=== PATIENT | female | born 1960 | race Caucasian/White ===

== ENCOUNTER → 2016-11-02 | Outpatient (CLI) | payer OTHER ==
--- NOTE | 2016-11-02 12:44 | REPMRS ---
Patient History The patient states she had a clinical breast exam in 11/2016. Patient is postmenopausal. Family history of pancreatic cancer in paternal grandmother at age 75. Digital Woman Screen Mammo: November 02, 2016 - Exam #: [id number] Bilateral CC and MLO view(s) were taken. Technologist: Melvina Lopez, Technologist Prior study comparison: January 12, 2015, digital woman screen mammo performed at [facility] to [facility]. January 12, 2013, digital woman screen mammo performed at [facility]. October 04, 2011, digital woman screen mammo performed at [facility]. FINDINGS: There are scattered fibroglandular densities. There has been no change in the appearance of the mammogram from the prior studies. There is a mild amount of scattered fibroglandular density which is fairly symmetric. There is no interval development of dominant mass, architectural distortion, or clustered microcalcification suggestive of malignancy. ASSESSMENT: BI-RADS/ACR category 1 mammogram. Negative. Recommendation Routine screening mammogram in 1 year (for women over age 40). This mammogram was interpreted with the aid of an FDA-approved computer-aided dectection system. Electronically Signed By: Giuseppe Kohli MD 11/02/16 4795
== END ==
LOC: M WHC 10:44
PROVIDERS: ATTEND Nurse Practitioner Family
DX: Z12.31 Encounter for screening mammogram for malignant neoplasm of breast (principal); Z78.0 Asymptomatic menopausal state; Z80.7 Family history of other malignant neoplasms of lymphoid, hematopoietic and related tissues

== ENCOUNTER → 2016-11-02 | Outpatient (REF) | payer OTHER | LOC: M SFHCWAGY 11:30 | PROVIDERS: ATTEND Nurse Practitioner Family | DX: Z11.3 Encounter for screening for infections with a predominantly sexual mode of transmission (principal); Z12.4 Encounter for screening for malignant neoplasm of cervix; N95.2 Postmenopausal atrophic vaginitis | CPT/HCPCS: 87491; 87591; G0123 ==

== ENCOUNTER → 2017-04-23 | Outpatient (CLI) | payer OTHER | LOC: M CLY 15:01 | DX: J10.1 Influenza due to other identified influenza virus with other respiratory manifestations (principal) | CPT/HCPCS: 71046 ==

== ENCOUNTER → 2020-02-19 | Outpatient (REF) | payer OTHER | LOC: M SFHCWAGY 13:01 | PROVIDERS: ATTEND Nurse Practitioner Family | DX: Z12.4 Encounter for screening for malignant neoplasm of cervix (principal) ==

== ENCOUNTER → 2020-02-19 | Outpatient (CLI) | payer OTHER ==
--- NOTE | 2020-02-19 09:28 | REPMRS ---
Patient History The patient states she had a clinical breast exam in 2019. Family history of pancreatic cancer at age 75 in paternal grandmother. Digital Woman Screen Mammo: February 19, 2020 - Exam #: [id number] Bilateral CC and MLO view(s) were taken. Technologist: Zee Balbuena, Technologist Prior study comparison: November 02, 2016, digital woman screen mammo performed at [facility]. January 12, 2015, digital woman screen mammo performed at [facility]. January 12, 2013, digital woman screen mammo performed at [facility]. FINDINGS: There are scattered fibroglandular densities. The Volpara volumetric breast density category is:B. There has been no change in the appearance of the mammogram from the prior studies. There is a mild amount of scattered fibroglandular density which is fairly symmetric. There is no interval development of dominant mass, architectural distortion, or grouped microcalcification suggestive of malignancy. 3-D tomosynthesis shows no additional findings. Assessment: BI-RADS/ACR category 1 mammogram. Negative Mammogram. Recommendation Routine screening mammogram of both breasts in 1 year (for women over age 40). This patient's [facility] Lifetime Breast Cancer Risk is estimated at 8.6 %. This mammogram was interpreted with the aid of an FDA-approved computer-aided dectection system. Electronically Signed By: Giuseppe Kohli MD 02/19/20 0928
== END ==
LOC: M WHC 08:17
PROVIDERS: ATTEND Nurse Practitioner Family
DX: Z12.31 Encounter for screening mammogram for malignant neoplasm of breast (principal); Z12.4 Encounter for screening for malignant neoplasm of cervix

== ENCOUNTER → 2020-05-26 | Outpatient (CLI) | payer OTHER ==
--- NOTE | 2020-05-26 16:05 | REP ---
INDICATION: CONTUSION RIGHT POSTERIOR RIB - 2 YRS AGO. COMPARISON: Bilateral rib series dated 11/01/2015. TECHNIQUE: Right ribs four views. PA chest single-view FINDINGS: Right ribs four views: No rib fracture or other rib abnormality is identified. PA chest: There is no pneumothorax, hemothorax, pulmonary contusion or pleural thickening. The lung bryant are clear. The cardiac size is normal. The jaciel, mediastinum, and skeletal structures are unremarkable except for scoliosis at the thoracolumbar junction convex right, unchanged.. IMPRESSION: Scoliosis convex right at the thoracolumbar junction, unchanged. Otherwise, negative right rib series. Because of the chronic skeletal pain consideration might be given to a radionuclide bone scan. <Electronically signed by Erik Sapp > 05/26/20 0983
== END ==
LOC: M CLY 14:12
PROVIDERS: ATTEND Nurse Practitioner Family
DX: S20.211A Contusion of right front wall of thorax, initial encounter (principal); X58.XXXA Exposure to other specified factors, initial encounter; Y92.9 Unspecified place or not applicable; M41.25 Other idiopathic scoliosis, thoracolumbar region

== ENCOUNTER → 2020-05-26 | Outpatient (REF) | payer OTHER ==
[2020-05-26 11:25] LABS: APPEARANCE, URINE TURBID (CLEAR); BACTERIA, URINE AUTO 3+ (NEGATIVE); BILIRUBIN, URINE AUTO NEGATIVE (NEGATIVE); BLOOD, URINE BLOOD NEGATIVE (NEGATIVE); COLOR, URINE YELLOW (YELLOW); GLUCOSE, URINE (UA) AUTO NEGATIVE (NEGATIVE); KETONE, URINE AUTO NEGATIVE (NEGATIVE); LEUKOCYTE ESTERASE, URINE AUTO 3+ (NEGATIVE); MUCUS, URINE LARGE (NEGATIVE); NITRITE, URINE AUTO NEGATIVE (NEGATIVE); PROTEIN, URINE AUTO 1+ mg/dL (NEGATIVE); RBC, URINE AUTO 1 /HPF (0-3); SQUAMOUS EPITHELIAL CELL UR AU 10 /HPF (0-6); WBC, URINE AUTO 26 /HPF (0-3)
[2020-05-26 11:26] LABS: BASO % 0.4 % (0.0-1.0); EOS # 0.2 10^3/uL (0.0-0.5); EOS % 2.9 % (0.0-3.0); HEMATOCRIT 42.6 % (36.0-47.0); HEMOGLOBIN 13.8 g/dl (12.0-15.5); LYMPH # 2.3 10^3/uL (1.5-5.0); LYMPH % 44.3 % (24.0-44.0); MEAN CORPUSCULAR HEMOGLOBIN 34.6 pg (27.0-33.0); MEAN CORPUSCULAR HGB CONC 32.4 g/dl (32.0-36.5); MEAN CORPUSCULAR VOLUME 106.8 fl (80.0-96.0); MONO # 0.5 10^3/uL (0.0-0.8); MONO % 8.8 % (2.0-8.0); NEUTROPHILS # 2.2 10^3/uL (1.5-8.5); NEUTROPHILS % 43.4 % (36.0-66.0); PLATELET COUNT, AUTOMATED 366 10^3/uL (150-450); RED BLOOD COUNT 3.99 10^6/uL (4.00-5.40); WHITE BLOOD COUNT 5.1 10^3/uL (4.0-10.0)
[2020-05-26 12:07] LABS: ERYTHROCYTE SEDIMENTATION RATE 7 mm/hr (0-30)
[2020-05-26 12:26] LABS: ALBUMIN 4.3 GM/DL (3.2-5.2); ALT/SGPT 51 U/L (12-78); BILIRUBIN,TOTAL 0.4 MG/DL (0.2-1.0); BLOOD UREA NITROGEN 13 MG/DL (7-18); CARBON DIOXIDE LEVEL 31 MEQ/L (21-32); CHLORIDE LEVEL 108 MEQ/L (98-107); CHOLESTEROL LEVEL 277 MG/DL (<200); CHOLESTEROL RISK RATIO 3.297 (<5); CREATININE FOR GFR 0.69 MG/DL (0.55-1.30); FERRITIN 86 NG/ML (8-252); FOLATE > 24.0 NG/ML; GLOMERULAR FILTRATION RATE > 60.0 (>51); GLUCOSE, FASTING 89 MG/DL (70-100); HDL CHOLESTEROL 84 MG/DL (>40); IRON (FE) 141 UG/DL (50-170); LDL CHOLESTEROL 161 MG/DL (<100); NON-HDL-C 193 MG/DL; POTASSIUM SERUM 4.3 MEQ/L (3.5-5.1); SODIUM LEVEL 143 MEQ/L (136-145); TOTAL 25(OH) VITAMIN D 37.9 NG/ML (30.0-100.0); TOTAL PROTEIN 7.8 GM/DL (6.4-8.2); TRIGLYCERIDES LEVEL 158 MG/DL (<150); VITAMIN B12 LEVEL 638 PG/ML
[2020-05-28 01:07] LABS: ANA (HEP2) Negative (.); CYCLIC CITRULLINATED PEPTIDE 7 units (0-19); Lyme Disease IgG/IgM Antibodie <0.91 ISR (0.00-0.90); Lyme Disease IgM Ab Quantitati <0.80 index (0.00-0.79)
== END ==
LOC: M SFHCCLAY 07:11
PROVIDERS: ATTEND Physician Assistant
DX: M25.50 Pain in unspecified joint (principal); E78.5 Hyperlipidemia, unspecified

== ENCOUNTER → 2020-06-08 | Outpatient (CLI) | payer OTHER ==
--- NOTE | 2020-06-08 11:13 | REP ---
INDICATION: PAIN. COMPARISON: None. 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 Generalized mild age-related degenerative changes to the remainder of the interphalangeal joints is appreciated including subtle subchondral sclerosis and minimal joint space narrowing. Left hand demonstrates mild/early moderate generalized degenerative changes with subchondral sclerosis and joint space narrowing primarily involving the interphalangeal joints as well as subtle cortical irregularity and joint space narrowing at the 1st carpometacarpal joint. IMPRESSION: Degenerative changes as described above primarily noted at the right 3rd PIP joint. <Electronically signed by Sourav Espino > 06/08/20 [id number]
== END ==
LOC: M SOG 09:31
PROVIDERS: ATTEND Family Medicine
DX: M13.841 Other specified arthritis, right hand (principal); M25.542 Pain in joints of left hand

== ENCOUNTER → 2020-11-24 | Outpatient (REF) | payer OTHER ==
[2020-11-24 13:00] LABS: CHOLESTEROL RISK RATIO 3.571 (<5)
== END ==
LOC: M SFHCCLAY 07:16
PROVIDERS: ATTEND Nurse Practitioner Family
DX: E78.5 Hyperlipidemia, unspecified (principal)

== ENCOUNTER → 2021-08-02 | Outpatient (REF) | payer OTHER ==
[2021-08-02 15:57] LABS: BASO % 0.5 % (0.0-1.0); EOS # 0.1 10^3/uL (0.0-0.5); EOS % 1.5 % (0.0-3.0); HEMATOCRIT 36.2 % (36.0-47.0); HEMOGLOBIN 11.9 g/dl (12.0-15.5); LYMPH # 2.7 10^3/uL (1.5-5.0); LYMPH % 45.9 % (24.0-44.0); MEAN CORPUSCULAR HEMOGLOBIN 34.3 pg (27.0-33.0); MEAN CORPUSCULAR HGB CONC 32.9 g/dl (32.0-36.5); MEAN CORPUSCULAR VOLUME 104.3 fl (80.0-96.0); MONO # 0.5 10^3/uL (0.0-0.8); MONO % 8.4 % (2.0-8.0); NEUTROPHILS # 2.6 10^3/uL (1.5-8.5); NEUTROPHILS % 43.5 % (36.0-66.0); PLATELET COUNT, AUTOMATED 318 10^3/uL (150-450); RED BLOOD COUNT 3.47 10^6/uL (4.00-5.40); WHITE BLOOD COUNT 5.9 10^3/uL (4.0-10.0)
[2021-08-02 16:39] LABS: ALBUMIN 3.8 GM/DL (3.2-5.2); ALT/SGPT 26 U/L (12-78); BILIRUBIN,TOTAL 0.5 MG/DL (0.2-1.0); BLOOD UREA NITROGEN 15 MG/DL (7-18); CALCIUM LEVEL 8.7 MG/DL (8.8-10.2); CARBON DIOXIDE LEVEL 30 MEQ/L (21-32); CHLORIDE LEVEL 105 MEQ/L (98-107); CHOLESTEROL LEVEL 201 MG/DL (<200); CREATININE FOR GFR 0.73 MG/DL (0.55-1.30); FREE T4 1.05 NG/DL (0.76-1.46); GLOMERULAR FILTRATION RATE > 60.0 (>45); GLUCOSE, FASTING 83 MG/DL (70-100); HDL CHOLESTEROL 87 MG/DL (>40); IRON (FE) 139 UG/DL (50-170); LDL CHOLESTEROL 100 MG/DL (<100); NON-HDL-C 114 MG/DL; PERCENT SATURATION 45.1 % (13.2-45.0); POTASSIUM SERUM 4.1 MEQ/L (3.5-5.1); SODIUM LEVEL 138 MEQ/L (136-145); TOTAL IRON BINDING CAPACITY 308 UG/DL (250-450); TOTAL PROTEIN 7.1 GM/DL (6.4-8.2); TRIGLYCERIDES LEVEL 71 MG/DL (<150)
== END ==
LOC: M SFHCCLAY 11:13
PROVIDERS: ATTEND Nurse Practitioner Family
DX: E78.5 Hyperlipidemia, unspecified (principal); D64.9 Anemia, unspecified; Z13.1 Encounter for screening for diabetes mellitus

== ENCOUNTER → 2021-10-03 | Outpatient (REF) | payer OTHER | LOC: M WUC 21:20 | PROVIDERS: ATTEND Student in an Organized Health Care Education/Training Program | DX: R30.0 Dysuria (principal) ==

== ENCOUNTER → 2022-06-25 | Outpatient (CLI) | payer OTHER | LOC: M WHC 10:03 | PROVIDERS: ATTEND Nurse Practitioner Family | DX: Z12.31 Encounter for screening mammogram for malignant neoplasm of breast (principal) ==

== ENCOUNTER → 2022-06-25 | Outpatient (REF) | payer OTHER | LOC: M SFHCWAGY 15:10 | PROVIDERS: ATTEND Nurse Practitioner Family | DX: Z12.4 Encounter for screening for malignant neoplasm of cervix (principal) ==

== ENCOUNTER → 2022-10-05 | Outpatient (REF) | payer OTHER ==
[2022-10-05 12:10] LABS: BASO % 0.8 % (0.0-1.0); EOS # 0.1 10^3/uL (0.0-0.5); HEMATOCRIT 39.2 % (36.0-47.0); HEMOGLOBIN 12.8 g/dl (12.0-15.5); LYMPH # 1.8 10^3/uL (1.5-5.0); LYMPH % 36.5 % (24.0-44.0); MEAN CORPUSCULAR HGB CONC 32.7 g/dl (32.0-36.5); MEAN CORPUSCULAR VOLUME 107.1 fl (80.0-96.0); MONO # 0.6 10^3/uL (0.0-0.8); MONO % 11.5 % (2.0-8.0); NEUTROPHILS # 2.4 10^3/uL (1.5-8.5); PLATELET COUNT, AUTOMATED 316 10^3/uL (150-450); RED BLOOD COUNT 3.66 10^6/uL (4.00-5.40)
[2022-10-05 12:40] LABS: FREE T4 1.05 NG/DL (0.89-1.76); THYROID STIMULATING HORMONE 2.122 uIU/ML (0.55-4.78)
[2022-10-05 12:48] LABS: ALBUMIN 3.8 G/DL (3.2-5.2); ALKALINE PHOSPHATASE 76 U/L (46-116); ALT/SGPT 32 U/L (7.0-40); AST/SGOT 19 U/L (<34); BILIRUBIN,TOTAL 0.5 MG/DL (0.3-1.2); BLOOD UREA NITROGEN 16 MG/DL (9-23); CALCIUM LEVEL 8.8 MG/DL (8.3-10.6); CARBON DIOXIDE LEVEL 28 MMOL/L (20-31); CHLORIDE LEVEL 104 MMOL/L (98-107); CHOLESTEROL LEVEL 249 MG/DL (<200); CHOLESTEROL RISK RATIO 3.01 (<5); CREATININE FOR GFR 0.71 MG/DL (0.55-1.30); GLOMERULAR FILTRATION RATE > 60.0 (>45); GLUCOSE, FASTING 103 MG/DL (74-106); HDL CHOLESTEROL 82.5 MG/DL (>40); LDL CHOLESTEROL 137.9 MG/DL (<100); NON-HDL-C 166.5 MG/DL; POTASSIUM SERUM 4.3 MMOL/L (3.5-5.1); SODIUM LEVEL 140 MMOL/L (136-145); TOTAL PROTEIN 6.8 G/DL (5.7-8.2); TRIGLYCERIDES LEVEL 143 MG/DL (<150)
== END ==
LOC: M SFHCCLAY 07:17
PROVIDERS: ATTEND Nurse Practitioner Family
DX: E78.5 Hyperlipidemia, unspecified (principal); D64.9 Anemia, unspecified; Z13.1 Encounter for screening for diabetes mellitus

== ENCOUNTER → 2022-10-05 | Outpatient (REF) | payer OTHER ==
[2022-10-05 12:10] LABS: HEMATOCRIT 38.8 % (36.0-47.0); HEMOGLOBIN 12.8 g/dl (12.0-15.5); MEAN CORPUSCULAR HEMOGLOBIN 35.3 pg (27.0-33.0); MEAN CORPUSCULAR VOLUME 106.9 fl (80.0-96.0); PLATELET COUNT, AUTOMATED 333 10^3/uL (150-450); RED BLOOD COUNT 3.63 10^6/uL (4.00-5.40)
[2022-10-05 12:39] LABS: HEMOGLOBIN A1c 5.1 % (4.0-6.0)
[2022-10-05 12:41] LABS: ALBUMIN 3.9 G/DL (3.2-5.2); ALKALINE PHOSPHATASE 79 U/L (46-116); ALT/SGPT 32 U/L (7.0-40); AST/SGOT 19 U/L (<34); BILIRUBIN,TOTAL 0.5 MG/DL (0.3-1.2); BLOOD UREA NITROGEN 17 MG/DL (9-23); CALCIUM LEVEL 8.7 MG/DL (8.3-10.6); CARBON DIOXIDE LEVEL 28 MMOL/L (20-31); CHLORIDE LEVEL 103 MMOL/L (98-107); CHOLESTEROL LEVEL 253 MG/DL (<200); GLOMERULAR FILTRATION RATE > 60.0 (>45); GLUCOSE, FASTING 102 MG/DL (74-106); HDL CHOLESTEROL 84.2 MG/DL (>40); LDL CHOLESTEROL 139.6 MG/DL (<100); NON-HDL-C 168.8 MG/DL; POTASSIUM SERUM 4.3 MMOL/L (3.5-5.1); SODIUM LEVEL 140 MMOL/L (136-145); TRIGLYCERIDES LEVEL 146 MG/DL (<150)
[2022-10-05 13:17] LABS: ERYTHROCYTE SEDIMENTATION RATE 8 mm/hr (0-30)
[2022-10-05 17:45] LABS: INR 0.9; PROTHROMBIN TIME 12.3 SECONDS (12.5-14.5)
[2022-10-05 17:46] LABS: PARTIAL THROMBOPLASTIN TIME 34.8 SECONDS (24.8-34.2)
[2022-10-06 18:08] LABS: ANTI DOUBLE STRAND-DNA AB 11 IU/mL (0-9); ANTINUCLEAR ANTIBODIES DIRECT Positive (Negative); RNP ANTIBODIES 0.3 AI (0.0-0.9); SJOGREN'S ANTI SS-A <0.2 AI (0.0-0.9); SJOGREN'S ANTI SS-B <0.2 AI (0.0-0.9); SMITH ANTIBODIES <0.2 AI (0.0-0.9)
== END ==
LOC: M LABDRAWC 11:14
PROVIDERS: ATTEND Physician Assistant
DX: H34.8322 Tributary (branch) retinal vein occlusion, left eye, stable (principal); E78.5 Hyperlipidemia, unspecified; D64.9 Anemia, unspecified; Z13.1 Encounter for screening for diabetes mellitus

== ENCOUNTER → 2022-10-12 | Outpatient (REF) | payer OTHER ==
[2022-10-12 18:38] LABS: URIC ACID 4.4 MG/DL (3.1-7.8)
[2022-10-12 18:39] LABS: C REACTIVE PROTEIN QUANTITATIV < 0.40 MG/DL (<1.0)
[2022-10-12 18:40] LABS: CPK CREATINE PHOSPHOKINASE 80 U/L (34-145); LDH LACTATE DEHYDROGENASE 210 U/L (120-246)
[2022-10-12 18:41] LABS: ALKALINE PHOSPHATASE 78 U/L (46-116); ALT/SGPT 32 U/L (7.0-40); AST/SGOT 16 U/L (<34); BILIRUBIN,TOTAL 0.4 MG/DL (0.3-1.2); BLOOD UREA NITROGEN 15 MG/DL (9-23); CALCIUM LEVEL 9.1 MG/DL (8.3-10.6); CARBON DIOXIDE LEVEL 30 MMOL/L (20-31); CHLORIDE LEVEL 103 MMOL/L (98-107); CHOLESTEROL LEVEL 248 MG/DL (<200); CREATININE FOR GFR 0.65 MG/DL (0.55-1.30); GLOMERULAR FILTRATION RATE > 60.0 (>45); GLUCOSE, FASTING 87 MG/DL (74-106); POTASSIUM SERUM 3.9 MMOL/L (3.5-5.1); RHEUMATOID FACTOR QUANT 5.8 IU/ML (<14); SODIUM LEVEL 140 MMOL/L (136-145); TRIGLYCERIDES LEVEL 298 MG/DL (<150)
== END ==
LOC: M LABDRAWC 16:29
PROVIDERS: ATTEND Physician Assistant
DX: H34.8322 Tributary (branch) retinal vein occlusion, left eye, stable (principal)

== ENCOUNTER → 2022-10-20 | Outpatient (CLI) | payer OTHER | LOC: M RAD 12:32 | PROVIDERS: ATTEND Nurse Practitioner Family | DX: R20.0 Anesthesia of skin (principal); H34.9 Unspecified retinal vascular occlusion; R20.2 Paresthesia of skin ==

== ENCOUNTER 2023-01-17 09:15 | Day surgery (SDC) | payer OTHER ==
[~2023-01-17] VITALS: Ht 162.6 cm; Wt 66.1 kg
[~2023-01-17 09:15] MED LIST: ceFAZolin SOD 2 GM in IV 1 EA IV ONE
[2023-01-17] MEDS ORDERED: LR 1,000 ML IV SCH (09:40)
[2023-01-17] MEDS ORDERED: MIDAZOLAM INJ 2MG/2ML VIAL As Ordered ONE (10:21)
[2023-01-17] MEDS ORDERED: LIDOCAINE PRES-FREE 2% 10ML AMP As Ordered ONE (10:21)
[2023-01-17] MEDS ORDERED: propofoL 200 MG/20 ML VIAL As Ordered ONE (10:21)
[2023-01-17] MEDS ORDERED: fentaNYL 100 MCG/2 ML INJECTION As Ordered ONE (10:22)
[2023-01-17] MEDS ORDERED: LIDOCAINE 1% MDV 20ML VIAL As Ordered ONE (10:26)
[2023-01-17] MEDS ORDERED: ONDANSETRON 4MG 2ML VIAL As Ordered ONE (10:34)
[2023-01-17 12:20] VITALS: BP 118/74; TEMP 97.8; O2SAT 96
== END 2023-01-17 12:20 | disposition home or self-care (01) ==
LOC: M SDC 09:15
PROVIDERS: ATTEND Podiatrist Foot & Ankle Surgery
DX: G57.61 Lesion of plantar nerve, right lower limb (principal); Z88.1 Allergy status to other antibiotic agents
CPT/HCPCS: 28080; 88304; J0665; J1100; J2250; J2405; J3010

== ENCOUNTER → 2023-07-04 | Outpatient (REF) | payer OTHER | LOC: M SFHCWAGY 13:36 | PROVIDERS: ATTEND Nurse Practitioner Family | DX: Z12.4 Encounter for screening for malignant neoplasm of cervix (principal); Z01.419 Encounter for gynecological examination (general) (routine) without abnormal findings; Z77.9 Other contact with and (suspected) exposures hazardous to health ==

== ENCOUNTER → 2023-07-04 | Outpatient (CLI) | payer OTHER | LOC: M WHC 08:32 | PROVIDERS: ATTEND Nurse Practitioner Family | DX: Z12.31 Encounter for screening mammogram for malignant neoplasm of breast (principal) ==

== ENCOUNTER → 2023-07-26 | Outpatient (REF) | payer OTHER | LOC: M PLALAB 15:12 | PROVIDERS: ATTEND Advanced Practice Midwife | DX: R87.612 Low grade squamous intraepithelial lesion on cytologic smear of cervix (LGSIL) (principal); R87.810 Cervical high risk human papillomavirus (HPV) DNA test positive ==

== ENCOUNTER → 2024-04-06 | Outpatient (REF) | payer OTHER | LOC: M SFHCCLAY 11:26 | PROVIDERS: ATTEND Nurse Practitioner Family | DX: Z00.00 Encounter for general adult medical examination without abnormal findings (principal); R03.0 Elevated blood-pressure reading, without diagnosis of hypertension; D36.13 Benign neoplasm of peripheral nerves and autonomic nervous system of lower limb, including hip; H34.9 Unspecified retinal vascular occlusion; E78.5 Hyperlipidemia, unspecified; D64.9 Anemia, unspecified ==

== ENCOUNTER → 2025-02-09 | Outpatient (REF) | payer OTHER | LOC: M LAB REF 11:57 | PROVIDERS: ATTEND Physician Assistant | DX: R30.0 Dysuria (principal) ==

== ENCOUNTER → 2025-02-22 | Outpatient (REF) | payer OTHER ==
[2025-02-26 06:22] LABS: HPV APTIMA Not Detected (Not Detected)
== END ==
LOC: M SFHCWAGY 11:43
PROVIDERS: ATTEND Nurse Practitioner Family
DX: Z12.4 Encounter for screening for malignant neoplasm of cervix (principal)

== ENCOUNTER → 2025-02-22 | Outpatient (CLI) | payer OTHER | LOC: M WHC 13:46 | PROVIDERS: ATTEND Nurse Practitioner Family | DX: Z12.31 Encounter for screening mammogram for malignant neoplasm of breast (principal) ==

== ENCOUNTER → 2025-02-23 | Outpatient (REF) | payer OTHER | LOC: M PLALAB 08:13 | PROVIDERS: ATTEND Nurse Practitioner Family | DX: Z12.4 Encounter for screening for malignant neoplasm of cervix (principal); Z53.9 Procedure and treatment not carried out, unspecified reason ==